=== PATIENT | male | born 2000 | race Two or more races ===

== ENCOUNTER 2022-06-12 13:38 | Emergency (ER) | payer MEDICAID ==
[~2022-06-12] VITALS: Ht 177.8 cm; Wt 77.1 kg
[2022-06-12 13:40] VITALS: BP 125/73
[2022-06-12] MEDS ORDERED: TDAP [DIPH/PERTUSSIS/TET] 0.5 ML VIAL IM ONE ×2 (14:23→14:30)
--- NOTE | 2022-06-12 14:31 | NUR ---
Patient discharged to home in stable condition. Written and verbal after care instructions given. Patient verbalizes understanding of instruction.
== END 2022-06-12 14:31 | disposition home or self-care (01) ==
LOC: ER 13:45
DX: S51.031A Puncture wound without foreign body of right elbow, initial encounter (principal); W26.8XXA Contact with other sharp object(s), not elsewhere classified, initial encounter; Y93.89 Activity, other specified; Y92.89 Other specified places as the place of occurrence of the external cause; Y99.8 Other external cause status
CPT/HCPCS: 90715

== ENCOUNTER 2023-11-16 20:52 | Emergency (ER) | payer MEDICAID ==
[~2023-11-16] VITALS: Ht 177.8 cm; Wt 77.1 kg
[2023-11-16 21:02] VITALS: TEMP 98.7
[2023-11-16] MEDS ORDERED: KETOROLAC TROMETHAMINE INJ 30 MG/ML VIAL ONE (22:00)
[2023-11-16] MEDS ORDERED: HYDROCODONE/APAP 5/325MG TABLET ONE (22:00)
[2023-11-16] MEDS: KETOROLAC TROMETHAMINE INJ 30 MG/ML VIAL IM ONE (22:07)
[2023-11-16] MEDS: HYDROCODONE/APAP 5/325MG TABLET PO ONE (22:07)
[2023-11-16] MEDS ORDERED: HYDR-4303 PO (23:35)
[2023-11-16] MEDS ORDERED: IBUP-1957 PO (23:35)
[2023-11-16] MEDS ORDERED: ACET-2605 PO (23:35)
[2023-11-17 00:02] VITALS: BP 122/79; O2SAT 98
== END 2023-11-17 00:04 | disposition home or self-care (01) ==
LOC: ER 20:57
DX: S99.912A Unspecified injury of left ankle, initial encounter (principal); X58.XXXA Exposure to other specified factors, initial encounter; Y93.67 Activity, basketball; Y92.89 Other specified places as the place of occurrence of the external cause; Y99.8 Other external cause status
CPT/HCPCS: 29125; 73610; 96372; 99283; J1885